=== PATIENT | female | born 1985 | race Caucasian/White ===

== ENCOUNTER → 2020-08-28 | Outpatient (CLI) | payer OTHER ==
[~2020-08-28] MED LIST: CHOL10003 PO; FOLI0.4T2 PO; IBUP-1222 PO; OXYC1TAB14 PO
[2020-08-28 12:48] LABS: BASOPHILS % (AUTO) 1 % (0-1); EOSINOPHILS % (AUTO) 1 % (1-7); LYMPHOCYTES % (AUTO) 31 % (22-44); MEAN CORPUSCULAR HEMOGLOBIN 26.9 pg (27.0-34.8); MEAN CORPUSCULAR HGB CONC 32.9 g/dL (32.4-35.8); MEAN PLATELET VOLUME 7.5 fL (7.4-10.4); MONOCYTES % (AUTO) 7 % (2-9); NEUTROPHILS % (AUTO) 60 % (42-75); PLATELET COUNT 409 x10^3/uL (130-400); RED CELL DISTRIBUTION WIDTH 15.5 % (9.6-15.2)
[2020-08-28 12:52] LABS: MD NO
== END | disposition home or self-care (01) ==
LOC: STAR 10:26
PROVIDERS: ATTEND Obstetrics & Gynecology
DX: Z01.812 Encounter for preprocedural laboratory examination (principal); Z20.822 Contact with and (suspected) exposure to COVID-19
CPT/HCPCS: 84703; 85025; 87635

== ENCOUNTER 2020-09-03 10:02 | Day surgery (SDC) | payer OTHER ==
[~2020-09-03] VITALS: Ht 154.9 cm; Wt 78.4 kg
[2020-09-03 10:43] VITALS: BP 115/74
[2020-09-03] MEDS ORDERED: CHLORHEXIDINE 15 ML UDC MM ONE (11:00)
[2020-09-03] MEDS ORDERED: LACTATED RINGERS 1,000 ML IV SCH (11:00)
[2020-09-03] MEDS ORDERED: ACETAMINOPHEN 500 MG TABLET PO ONE (11:00)
[2020-09-03] MEDS ORDERED: MIDAZOLAM 1 MG/ML, 2ML ONE (11:26)
[2020-09-03] MEDS ORDERED: FENTANYL PF 250 MCG/5ML ONE (11:26)
[2020-09-03] MEDS ORDERED: FENTANYL PF 100 MCG/2ML IV PRN (12:00)
[2020-09-03] MEDS ORDERED: HYDROmorphone 1 MG/ML, 1ML INJ IVPush PRN (12:00)
[2020-09-03] MEDS ORDERED: hydrALAzine 20 MG/ML, 1ML IV PRN (12:00)
[2020-09-03] MEDS ORDERED: LABETALOL 5MG/ML, 20ML IV PRN (12:00)
[2020-09-03] MEDS ORDERED: ONDANSETRON 2MG/ML, 2ML IVPush PRN (12:00)
[2020-09-03] MEDS ORDERED: PROMETHAZINE 25 MG/ML, 1ML IVPush PRN (12:00)
[2020-09-03] MEDS ORDERED: EPHEDRINE 50 MG/ML, 1ML IVPush PRN (12:00)
[2020-09-03] MEDS ORDERED: OXYcodone 5 MG/5 ML ORAL.SOL UDC PO PRN (12:00)
[2020-09-03] MEDS ORDERED: DEXAMETHASONE 4 MG/ML, 1ML ONE (12:16)
[2020-09-03] MEDS ORDERED: SUCCINYLCHOLINE 20 MG/ML, 10ML ONE (12:16)
[2020-09-03] MEDS ORDERED: PROPOFOL 10 MG/ML, 20ML ONE (12:16)
[2020-09-03] MEDS ORDERED: ONDANSETRON 2MG/ML, 2ML ONE ×2 (12:16→13:46)
[2020-09-03] MEDS ORDERED: KETOROLAC 30 MG/1 ML ONE (12:17)
[2020-09-03] MEDS ORDERED: LIDOCAINE-MPF 2% ,5ML ONE (12:17)
[2020-09-03] MEDS ORDERED: CEFAZOLIN 1,000 MG ONE ×2 (12:21)
[2020-09-03] MEDS ORDERED: ROCURONIUM 10MG/ML,5ML ONE (12:23)
[2020-09-03] MEDS ORDERED: SUGAMMADEX 200 MG/2 ML IVPush ONE (12:23)
[2020-09-03] MEDS ORDERED: BUPIVACAINE/PF 0.25% ONE (12:34)
[2020-09-03] MEDS ORDERED: EPINEPHRINE 1 MG/ML, 1ML ONE (12:34)
[2020-09-03] MEDS ORDERED: BUPIVACAINE/PF 0.5% ONE (12:34)
[2020-09-03] MEDS ORDERED: BUPIVACAINE/PF-EPI 0.5% 1:200K INFIL ONE (12:48)
[2020-09-03] MEDS ORDERED: OXYC1TAB14 PO (13:20)
[2020-09-03] MEDS ORDERED: PROMETHAZINE 25 MG/ML, 1ML ONE (13:54)
[2020-09-03] MEDS ORDERED: ACETAMINOPHEN 325 MG TABLET PO PRN (14:30)
== END 2020-09-03 18:17 | disposition home or self-care (01) ==
LOC: OUT 10:02
PROVIDERS: ATTEND Obstetrics & Gynecology
DX: D39.12 Neoplasm of uncertain behavior of left ovary (principal); Z79.899 Other long term (current) drug therapy
CPT/HCPCS: 36415; 58925; 81025; 86850; 86900; 88305; J0171; J0330; J0690; J1100; J1885; J2250; J2405; J2550; J2704; J3010; J7120